=== PATIENT | female | born 1950 | race Caucasian/White ===

== ENCOUNTER 2018-03-22 10:36 | Inpatient (IN) | payer MEDICARE, BC ==
[2018-03-22] MEDS ORDERED: ASPIRIN 81 MG CHEWABLE TABLET PO ONE (10:49)
[2018-03-22] MEDS ORDERED: DILTIAZEM 25MG/5ML VIAL IV ONE ×2 (10:52→12:31)
[2018-03-22 11:03] LABS: BASO % 0.7 % (0-6); EOS % 4.2 % (0-6); GRAN % 59.3 % (47-80); HEMOGLOBIN 14.5 gm/dl (11.6-16.0); LYMPH % 30.4 % (16-45); MEAN CELL VOLUME 90.7 fl (81-97); MEAN CORPUSCULAR HEMOGLOBIN 29.9 pg (27-33); MEAN PLATELET VOLUME 11.5 fl (7.4-10.4); MONO % 5.4 % (0-9); PLATELET COUNT 260 K/uL (130-400); RED BLOOD COUNT 4.85 M/uL (3.80-5.40); RED CELL DISTRIBUTION WIDTH 13.5 % (11.5-14.5); WHITE BLOOD COUNT W/O DIFF 8.7 K/uL (4.2-12.2)
[2018-03-22 11:16] LABS: BLOOD UREA NITROGEN 12 mg/dL (8-23); CREATININE 0.7 mg/dL (0.5-0.9); EST GLOMERULAR FILTRATION RATE > 60 mL/min
--- NOTE | 2018-03-22 11:18 | Emergency Department Record ---
History of Present Illness - General Chief Complaint: Arrythmia/Palpitations Stated Complaint: HEART RACING Time Seen by Provider: 03/22/18 10:41 Source: Patient, Family Mode of Arrival: Ambulatory Limitations: No limitations - History of Present Illness Initial Comments: pt felt like her heart is racing since 0830 this am. she also has a pressure in her jaw. she states she has had a racing heart in the past but it always spontaneously resolves MD Complaint: "Heart racing", Palpitations, Rapid heart beat Onset/Timin -: Hour(s) Arrythmia History: Atrial fibrillation, Other Associated Symptoms: Anxiety, Nausea/vomiting - Related Data Home Medications Medication Instructions Recorded Confirmed Last Taken Cetirizine HCl [Zyrtec] 10 mg PO DAILY 03/22/18 03/22/18 1 Day Ago ~03/21/18 Doxycycline Monohydrate [Oracea] 40 mg PO DAILY 03/22/18 03/22/18 1 Day Ago ~03/21/18 Fluticasone Propionate [Flonase 1 spray NS BID 03/22/18 03/22/18 1 Day Ago Allergy Relief] ~03/21/18 Levothyroxine Sodium [Synthroid] 88 mcg PO DAILY 03/22/18 03/22/18 1 Day Ago ~03/21/18 Lisinopril 10 mg PO DAILY 03/22/18 03/22/18 1 Day Ago ~03/21/18 Omeprazole 20 mg PO DAILY 03/22/18 03/22/18 1 Day Ago ~03/21/18 Pravastatin Sodium [Pravachol] 20 mg PO DAILY 03/22/18 03/22/18 1 Day Ago ~03/21/18 Allergies Allergy/AdvReac Type Severity Reaction Status Date / Time brompheniramine Allergy RASH Verified 03/22/18 11:09 [From Drixoral] dexbrompheniramine Allergy RASH Verified 03/22/18 11:09 [From Drixoral] erythromycin base Allergy DIARRHEA Verified 03/22/18 11:09 [From Erythrocin] Penicillins Allergy RASH Verified 03/22/18 11:09 pseudoephedrine Allergy RASH Verified 03/22/18 11:09 [From Drixoral] Travel Screening - Travel/Exposure Within Last 30 Days Have you traveled within the last 30 days?: No - Travel/Exposure Within Last Year Have you traveled outside the [place] in the last year?: No - Additonal Travel Details Have you been exposed to anyone with a communicable illness?: No - Travel Symptoms Symptom Screening: None Review of Systems Reviewed: No additional complaints except as noted below Constitutional: Reports: As per HPI. Denies: Chills, Fever, Malaise, Night sweats, Weakness, Weight change Eyes: Reports: As per HPI. Denies: Eye discharge, Eye pain, Photophobia, Vision change ENT: Reports: As per HPI. Denies: Congestion, Dental pain, Ear pain, Epistaxis , Hearing loss, Throat pain Respiratory: Reports: As per HPI. Denies: Cough, Dyspnea, Hemoptysis, Stridor, Wheezes Cardiovascular: Reports: As per HPI. Denies: Arrhythmia, Chest pain, Dyspnea on exertion, Edema, Murmurs, Orthopnea, Palpitations, Paroxysmal nocturnal dyspnea, Rheumatic Fever, Syncope Endocrine: Reports: As per HPI. Denies: Fatigue, Heat or cold intolerance, Polydipsia, Polyuria Gastrointestinal: Reports: As per HPI. Denies: Abdominal pain, Constipation, Diarrhea, Hematemesis, Hematochezia, Melena, Nausea, Vomiting Genitourinary: Reports: As per HPI. Denies: Abnormal menses, Discharge, Dyspareunia, Dysuria, Frequency, Hematuria, Incontinence, Retention, Urgency Musculoskeletal: Reports: As per HPI. Denies: Arthralgia, Back pain, Gout, Joint swelling, Myalgia, Neck pain Skin: Reports: As per HPI. Denies: Bruising, Change in color, Change in hair/ nails, Lesions, Pruritus, Rash Neurological: Reports: As per HPI. Denies: Abnormal gait, Confusion, Headache, Numbness, Paresthesias, Seizure, Tingling, Tremors, Vertigo, Weakness Psychiatric: Reports: As per HPI. Denies: Anxiety, Auditory hallucinations, Depression, Homicidal thoughts, Suicidal thoughts, Visual hallucinations Hematological/Lymphatic: Reports: As per HPI. 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 - NEURO Hx Neuro Disorders: No - GI Hx Diverticulitis: Yes Hx Reflux: Yes - Hx Genitourinary Disorders: Yes Hx Kidney Stones: Yes Comment:: abnormal kidney - ENDOCRINE Hx Endocrine Disorders: Yes Hx Diabetes: No Hx Thyroid Disease: Yes (thyroidectomy) - MUSCULOSKELETAL Hx Arthritis: Yes Comment:: leg cramps - PSYCH Hx Anxiety: Yes (self coping) Hx Depression: Yes - HEMATOLOGY/ONCOLOGY Hx Anemia: No Hx Blood Disorders: No Hx Bruising: Yes Hx Cancer: Yes Hx Chemotherapy: No Hx Radiation Therapy: No (radio iodine) Family Medical History Any Significant Family History?: No Family Hx Comment (NOT TO BE USED IN PLACE OF ITEMS BELOW): Father diverticulis with bowel resection Hx Cancer: Father Hx Heart Disease: Mother, Grandparents *Heart Comment: past away at 49 Physical Exam - General General Appearance: Alert, Oriented x3, Cooperative, Mild distress - Head Head exam: Normal inspection - Eye Eye exam: Normal appearance, PERRL, EOMI Pupils: Normal accommodation - ENT ENT exam: Normal exam, Mucous membranes moist, Normal external ear exam, Normal orophraynx, TM's normal bilaterally Ear exam: Normal external inspection. negative: External canal tenderness Nasal Exam: Normal inspection. negative: Discharge, Sinus tenderness Mouth exam: Normal external inspection, Tongue normal Teeth exam: Normal inspection. negative: Dental caries Throat exam: Normal inspection. negative: Tonsillar erythema, Tonsillar exudate - Neck Neck exam: Normal inspection, Full ROM. negative: Tenderness - Respiratory Respiratory exam: Normal lung sounds bilaterally. negative: Respiratory distress - Cardiovascular Cardiovascular Exam: Normal heart sounds, Irregular rhythm, Tachycardia - GI/Abdominal GI/Abdominal exam: Soft, Normal bowel sounds. negative: Tenderness - Rectal Rectal exam: Deferred - exam: Deferred - Extremities Extremities exam: Normal inspection, Full ROM, Normal capillary refill. negative: Tenderness - Back Back exam: Reports: Normal inspection, Full ROM. Denies: Muscle spasm, Rash noted, Tenderness - Neurological Neurological exam: Alert, CN II-XII intact, Normal gait, Oriented X3 - Psychiatric Psychiatric exam: Normal affect, Normal mood - Skin Skin exam: Dry, Intact, Normal color, Warm Course Vital Signs 03/22/18 03/22/18 10:39 11:04 Pulse Rate 185 H Pulse Rate [ 128 H Pulse Ox Probe] Respiratory 20 20 Rate Blood Pressure 112/95 Blood Pressure 99/79 [Left Arm] Pulse Ox 97 2 L Medical Decision Making - Lab Data Result diagrams: 03/22/18 10:47 03/22/18 10:47 Lab Results 03/22/18 Range/Units 10:47 WBC 8.7 (4.2-12.2) K/uL RBC 4.85 (3.80-5.40) M/uL Hgb 14.5 (11.6-16.0) gm/dl Hct 44.0 (35.0-47.0) % MCV 90.7 (81-97) fl MCH 29.9 (27-33) pg MCHC 33.0 (32-36) g/dl RDW 13.5 (11.5-14.5) % Plt Count 260 (130-400) K/uL MPV 11.5 H (7.4-10.4) fl Gran % 59.3 (47-80) % Lymphocytes % 30.4 (16-45) % Monocytes % 5.4 (0-9) % Eosinophils % 4.2 (0-6) % Basophils % 0.7 (0-6) % Disposition Disposition: Admit Clinical Impression: Atrial fibrillation with RVR Disposition: Still a Patient at [facility] Decision to Admit: Admit from ER Decision to Admit Date: 03/22/18 Decision to Admit Time: 14:47 Quality - Quality Measures Quality Measures: N/A - Blood Pressure Screening Does Patient Have Any of the Following: No Blood Pressure Classification: Hypertensive Reading Systolic Measurement: 112 Diastolic Measurement: 95 Screening for High Blood Pressure: < Pre-Hypertensive BP, F/U Documented > [ [id number]] Pre-Hypertensive Follow-up Interventions: Follow-up with rescreen every year.
[2018-03-22 11:19] LABS: GLUCOSE,RANDOM 146 mg/dL (74-109)
[2018-03-22 11:22] LABS: CREATINE PHOSPHOKINASE 64 U/L (26-192)
[2018-03-22 11:24] LABS: CKMB 1.5 ng/mL (<3.77)
[2018-03-22 11:32] LABS: THYROID STIMULATING HORMONE 1.37 uIU/mL (0.270-4.20)
[2018-03-22] MEDS ORDERED: DILTIAZEM HCL 125 MG in 0.9 % SODIUM CHLORIDE 100ML 100 ML IV SCH (11:45)
[2018-03-22] MEDS ORDERED: RIVAROXABAN 20 MG TABLET PO ONE (15:00)
[2018-03-22] MEDS ORDERED: NITROGLYCERIN 0.4MG SL TABLET #25 BTL SL PRN (16:25)
[2018-03-22] MEDS ORDERED: TEMAZEPAM 15 MG CAPSULE PO PRN (16:25)
[2018-03-22] MEDS ORDERED: ACETAMINOPHEN 325 MG TAB PO PRN (16:25)
[2018-03-22] MEDS ORDERED: ACETAMINOPHEN 500 MG TABLET PO PRN (16:25)
[2018-03-22 20:27] LABS: CKMB 2.7 ng/mL (<3.77)
--- NOTE | 2018-03-22 21:00 | Medical Records Consult ---
DATE: 03/22/2018 CONSULTING: CASE ROLLINS PA-C REASON FOR CONSULTATION: ATRIAL FIBRILLATION WITH RAPID VENTRICULAR RESPONSE. HISTORY OF PRESENT ILLNESS: Ms. Brown is a very pleasant 67-year-old female with a history of hypertension, hyperlipidemia, hypothyroidism , allergic rhinitis, and gastroesophageal reflux disease, who presented to [facility] this morning with symptoms of palpitations and associated shortness of breath and dizziness. She has had intermittent palpitations lately, typically in the morning but this episode lasted longer than usual and did not spontaneously resolve as it had been in the past and therefore, she presented to the Emergency Department. She has had no symptoms of chest pain this morning but lately has noticed increased symptoms of reflux. She does note mild peripheral edema lately as well. She has no known history of coronary artery disease. She does also have a history of mitral valve regurgitation, which was diagnosed in 1983, when she was . She has also been told she has an irregular heart beat in the past but never diagnosed with A -fib. She has no prior history of CVA, TIA, DVT, PE, CAD, or CHF. She has a family history of cardiovascular disease with her father having a history of myocardial infarction and her mother dying at a young age at 49 years old of unknown cause, possible CVA vs. OK. She denies a history of tobacco or alcohol use. Initial EKG showed atrial fibrillation with rapid ventricular response with rates around 140 beats per minute. She was given two Cardizem boluses and subsequently placed on a drip and spontaneously converted to normal sinus rhythm with occasional PACs. Her blood pressure has been stable and, since conversion to sinus rhythm, she has been asymptomatic. PAST MEDICAL HISTORY: 1. Hypertension. 2. Hyperlipidemia. 3. Hypothyroidism. 4. Allergic rhinitis. 5. Gastroesophageal reflux disease. ALLERGIES: 1. PENICILLIN. 2. ERYTHROMYCIN. 3. MAGNESIUM. 4. DRIXORAL. FAMILY HISTORY: 1. Mother at 49 years old of unknown cause, possible CVA vs. [place]. 2. Father has a history of hypertension as well as myocardial infarction. SOCIAL HISTORY: Denies a previous history of tobacco, alcohol, or illicit drug use. HOME MEDICATIONS: She takes: Lisinopril Pravastatin Zyrtec Flonase Synthroid Omeprazole Oracea OBJECTIVE: VITAL SIGNS: Blood pressure approximately 147/63. Heart rate 73. LABS: WBC 8.7. Hemoglobin 14.5. Hematocrit 44.0. Platelets 260. D-dimer 0.43. Sodium 144. Potassium 3.5. Chloride 105. CO2 24. BUN 12 Creatinine 0.7. Glucose 146. CPK 64. CK-MB 1.5. Troponin less than 0.01. TSH 1.37. CHEST X-RAY: Negative for acute intrathoracic pathology. PHYSICAL EXAM: GENERAL: Alert and oriented x3, in no acute distress. On supplemental oxygen with IV Cardizem drip currently running. HEENT: Normocephalic, atraumatic. Pupils equal, round, and reactive to light. CARDIAC: Regular rate and rhythm with occasional premature beats, 3 out of 6 systolic murmur best auscultated at the apex, trace bilateral peripheral edema. LUNGS: Clear to auscultation bilaterally. ABDOMEN: Soft, nontender. Positive bowel sounds x4. Neurocranial nerves II through XII grossly intact. ASSESSMENT AND PLAN: NEWLY DIAGNOSED ATRIAL FIBRILLATION WITH RAPID VENTRICULAR RESPONSE: Ms. Brown is a pleasant 67-year-old female with a history of hypertension, hyperlipidemia, hypothyroidism, and GERD, who presented to [facility] today complaints of palpitations. Initial EKG showed atrial fibrillation with rapid ventricular response. She received two boluses of IV Cardizem as well as was started on a drip and has since converted to sinus rhythm. Since she has been in sinus rhythm, she has been asymptomatic. On telemetry, she does have occasional PACs. Her blood pressure has been stable. At this time, she will be admitted to Internal Medicine Service and observed overnight and continued on IV Cardizem drip. She will be started on oral anticoagulation for a CHADS2-VASc score of 3 (age, female, hypertension). This will be with Eliquis 5 mg b.i.d. or Xarelto 20 mg daily, depending on her insurance. Recent thyroid function and electrolytes were satisfactory on labs performed in the E.D. today. Echocardiogram has been completed today and awaiting results. She will likely need an outpatient stress test in the near future as well. Will follow-up with her tomorrow. cc: Dr. Matthew Snell JOB NUMBER: [id number] [facility]
[2018-03-23 04:15] LABS: CKMB 2.9 ng/mL (<3.77)
[2018-03-23] MEDS ORDERED: OMEPRAZOLE 20 MG PO SCH (07:00)
[2018-03-23] MEDS ORDERED: LEVOTHYROXINE SODIUM 88 MCG TABLET PO SCH (07:00)
--- NOTE | 2018-03-23 07:11 | History and Physical Report ---
DATE: 03/22/2018 CHIEF COMPLAINT: Palpitations, tachycardia, short of breath. HISTORY OF PRESENT ILLNESS: This 67-year-old female presented to the emergency department with rapid heart rate, irregular, rate of 185. Some chest discomfort, jaw hurts, short of breath. She has had this happen 2-3 times before but it went away by itself. First time she came to the hospital for medical care. PAST MEDICAL HISTORY: Hypercholesterolemia, hypothyroidism, GERD, hypertension, diverticulitis, abnormal kidney with kidney stones, thyroidectomy, arthritis, leg cramps, anxiety, depression. PAST SURGICAL HISTORY: Tonsils and adenoids, appendectomy, thyroidectomy, colonoscopy. She had had radiation for her thyroid, radioactive iodine. MEDICATIONS: 1. Pravachol 20 mg at h.s. 2. levothyroxine 88 mcg daily. 3. Doxycycline 40 mg daily. 4. Flonase nasal spray 1 spray each nostril b.i.d. 5. Zyrtec 10 mg daily. 6. Omeprazole 20 mg daily. 7. Lisinopril 10 mg daily. ALLERGIES: PSEUDOEPHEDRINE, PENICILLIN, ERYTHROMYCIN, DRIXORAL. FAMILY/PSYCHOSOCIAL HISTORY: Father had cancer, mother had heart disease, grandparents had heart disease. Never smoked cigarettes. No alcohol or drug use. REVIEW OF SYSTEMS: HEENT: No upper respiratory infection symptoms, cough, cold, or congestion. Cardiovascular: See Chief Complaint. She has palpitations, arrhythmia, and tachycardia. Respiratory: No cough, cold, or congestion. Gastrointestinal: No nausea, vomiting, diarrhea, black stools, or bloody stools. Genitourinary: No dysuria, hematuria, frequency, or burning on urination. Musculoskeletal: She has arthritis. Neurological: No CVA, paralysis, or paresthesias. Endocrine: She has hypothyroidism. She has had her thyroid irradiated with radioactive iodine probably for Graves disease or cancer. Integument: No rash, ulcers, change in moles, or yellow skin. PHYSICAL EXAMINATION: VITALS: Height 5 feet 7 inches, weight 180 pounds. Temperature 98.4, pulse 65, blood pressure 136/62, respiratory rate 18, pulse ox 100% on 2L nasal cannula. She was when she came in 185 was her pulse rate, now it is 86 and regular. Normal sinus rhythm. EKG is reviewed. HEENT: Pupils are equal, round, and reactive to light and accommodation. Extraocular muscles are intact. Throat is clear. Nose is clear. Tympanic membranes are mcnamara. NECK: Supple. No jugular venous distention. No hepatojugular reflux. No carotid bruits. Thyroid is smooth. CARDIOVASCULAR: Currently regular rate and rhythm. Was in Atrial fibrillation with a rate of 185, irregular. RESPIRATORY: Clear to auscultation. Breath sounds equal bilaterally. ABDOMEN: Soft, nontender. No hepatosplenomegaly, no masses, no tenderness. Bowel sounds are active. No bruits. EXTREMITIES: No pitting edema. No cyanosis, no clubbing. Full range of motion. Peripheral pulses are good. BREASTS: Exam deferred. GYNECOLOGICAL: Exam deferred. RECTAL: Exam deferred. NEUROLOGIC: Cranial nerves II-XII intact. No gross defects. Sensation normal, strength normal. Deep tendon reflexes equal bilaterally with Babinski negative. MENTAL STATUS: Alert and oriented x3. IMPRESSION: 1. Atrial fibrillation with rapid ventricular response. 2. Hypercholesterolemia. 3. Hypothyroidism secondary to radioactive iodine and treatment of her thyroid. 4. Allergies. 5. Gastroesophageal reflux disease. 6. Hypertension. PLAN: She has a Cardizem drip going. Cardiology has already seen her through the physician clinical research assistant and Dr. Pleitez is planning to see her tomorrow. [facility]
--- NOTE | 2018-03-23 09:21 | RADIOLOGY REPORT ---
EXAM: PORTABLE CHEST HISTORY: CHEST PAIN. TECHNIQUE: AP upright portable view of the chest was obtained. Comparison: None. FINDINGS: The heart size is normal. Calcification of the aorta. No definite acute infiltrate seen. No pleural effusion or pneumothorax evident. Fracture deformity of the right seventh rib posteriorly is presumably chronic and correlation with any such history of prior rib fracture suggested. The bones do appear somewhat osteopenic suggesting osteoporosis. IMPRESSION: 1. CALCIFICATION OF THE AORTA. 2. NO ACUTE INFILTRATE EVIDENT. 3. FRACTURE DEFORMITY POSTERIORLY IN THE RIGHT SEVENTH RIB, PRESUMABLY CHRONIC. OSTEOPOROSIS. JOB NUMBER: [id number] [facility]
[2018-03-23] MEDS ORDERED: Non-Formulary MISC (Omeprazole [Omeprazole] 20 MG) PO SCH (10:00)
[2018-03-23] MEDS ORDERED: DOXYCYCLINE MONOHYDRATE 40 MG PO SCH (10:00)
[2018-03-23] MEDS ORDERED: FLUTICASONE PROPIONATE INH SCH (10:00)
[2018-03-23] MEDS ORDERED: PATIENT OWN MED: LISINOPRIL 10 MG PO SCH (10:00)
[2018-03-23] MEDS ORDERED: PRAVASTATIN SODIUM 20 MG PO SCH (10:00)
[2018-03-23] MEDS ORDERED: CETIRIZINE 10 MG PO SCH (10:00)
[2018-03-23] MEDS ORDERED: Non-Formulary MISC (Cetirizine Hcl [Zyrtec] 10 MG) PO SCH (10:00)
[2018-03-23] MEDS ORDERED: DOXYCYCLINE 40 MG PO SCH (10:00)
[2018-03-23] MEDS ORDERED: DILTIAZEM HCL 120 MG ER CAPSULE PO SCH (11:45)
[2018-03-23] MEDS ORDERED: SUCRALFATE 1 G/10 ML UD PO ONE (13:11)
--- NOTE | 2018-03-23 17:58 | Discharge Note ---
VTE H&P Assessment - Risk for VTE Risk for VTE: Yes Risk Level: Moderate Risk Assessment Date: 03/22/18 Risk Assessment Time: 17:00 VTE Orders Placed or Will Be Placed: Yes Discharge Medications - Discharge Medications Prescriptions: Diltiazem HCl [Cardizem Cd] 120 mg PO DAILY #30 cap.er.24h Rivaroxaban [Xarelto] 20 mg PO DAILY #30 tab Home Medications: Ambulatory Orders Cetirizine HCl [Zyrtec] 10 mg PO DAILY 03/22/18 [Last Taken 1 Day Ago ~03/21/18] Doxycycline Monohydrate [Oracea] 40 mg PO DAILY 03/22/18 [Last Taken 1 Day Ago ~ 03/21/18] Fluticasone Propionate [Flonase Allergy Relief] 1 spray NS BID 03/22/18 [Last Taken 1 Day Ago ~03/21/18] Levothyroxine Sodium [Synthroid] 88 mcg PO DAILYTHY 03/22/18 [Last Taken 1 Day Ago ~03/21/18] Lisinopril 10 mg PO DAILY 03/22/18 [Last Taken 1 Day Ago ~03/21/18] Omeprazole 20 mg PO DAILY 03/22/18 [Last Taken 1 Day Ago ~03/21/18] Pravastatin Sodium [Pravachol] 20 mg PO QHS 03/22/18 [Last Taken 1 Day Ago ~] Diltiazem HCl [Cardizem Cd] 120 mg PO DAILY #30 cap.er.24h 03/23/18 [Last Taken Unknown] Rivaroxaban [Xarelto] 20 mg PO DAILY #30 tab 03/23/18 [Last Taken Unknown] Discharge Note - Date Date of Discharge Note: 03/23/18 Disposition: Home, Self-Care Condition: (1) Good Additional Instructions: follow up with family tomorrсветлана as scheduled and she is having some dysphagia problems and will need a GI consult for possible EGD. follow up clinical radiologist Dr. Candy Pleitez from [facility] in 4-6 weeks at [facility] specialty clinic schedule outpatient stress test patient needs nursing home anticoag and starting xarelto 20 mg once a day for her episode of atrial fib and she has an abnormality on her echo which needs anticoagulation too. continuing cardizemCD 120 mg to keep her rate down and hopefully she will stay in NSR. continue her home meds Referrals: JELENA MORALES [Primary Care Provider] - Forms: Patient Portal Access
[2018-03-23] MEDS ORDERED: SUCRALFATE 1 G/10 ML UD PO SCH (18:00)
[2018-03-23] MEDS ORDERED: RIVAROXABAN 20 MG TABLET PO SCH (18:00)
[2018-03-23] MEDS ORDERED: PRAVASTATIN 20 MG PO SCH (22:00)
[2018-03-24] MEDS ORDERED: PATIENT OWN MED: LEVOTHYROXINE 88 MCG PO SCH (07:00)
[2018-03-24] MEDS ORDERED: DOXYCYCLINE 40 MG PO SCH (07:00)
--- NOTE | 2018-03-24 12:40 | Discharge Summary ---
DATE: 03/23/2018 DISCHARGE DIAGNOSES: 1. An episode of atrial fibrillation with a fast rate of 185. Rate was slowed down with IV Cardizem and then she converted to normal sinus rhythm. 2. Nausea and dysphagia. 3. Gastroesophageal reflux disease. 4. Cardiac enzymes were negative. 5. 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 Started on Xarelto 20 mg once a day. 6. She also has a history of hypercholesterolemia, hypothyroidism, GERD, hypertension. ATTENDING PHYSICIAN: Jules Ravi DO REASON FOR HOSPITALIZATION: Tachycardia, palpitations, short of breath. This 67-year-old female presented to the emergency department with rapid heart rate, irregular rate of 185, some chest discomfort, jaw hurt, shortness of breath. She has had this happen 2 or 3 times before but it went away by itself. First time she sought medical care for this problem. SIGNIFICANT FINDINGS: Cardiac enzymes were negative. EKG, you can see the initial EKG showing rapid ventricular response with about 185 in atrial fibrillation. After she converted, she was showing normal sinus rhythm with no acute ST-T-wave changes. Cardiac enzymes were normal. WBC 8700, hemoglobin 14.5, potassium 3.5, BUN 12, creatinine 0.7, CK-MB negative 2.9, TSH 1.37. Consultation with Dr. Cammie Pleitez, the gandy dancer from [facility], who agreed with rate control and she is in normal sinus rhythm. He also agreed with long-term anticoagulation and wants to do an exercise stress test outpatient, and he wants to have the patient follow up with him in 4-6 weeks for further evaluation. HOSPITAL COURSE: Unremarkable. She has been asymptomatic since converting to normal sinus rhythm in the emergency department. CONDITION ON DISCHARGE: Much improved. DISCHARGE INSTRUCTIONS: Follow up with her primary, Dr. Beckett, tomorrow as scheduled. Will need a GI consult for her dysphagia. Possible EGD. Will continue her Prilosec once a day and Maalox or Mylanta as needed after meals and at bedtime. She is to follow up with Dr. Cammie Pleitez in 4-6 weeks at the specialty clinic at [facility] for further treatment of her episode of AFib and an abnormal echocardiogram. Start Xarelto 20 mg a day for long-term. Using Xarelto because the pharmacy said this is the least expensive one with her insurance. Also started Cardizem CD 120 once a day to keep her rate down and to keep her hopefully in normal sinus rhythm. Continue home medications. Levothyroxine 88 mcg daily, lisinopril 10 mg daily, omeprazole 20 mg daily, pravastatin 20 mg at h.s., and I believe doxycycline 40 mg daily and Zyrtec 10 mg daily p.r.n. allergies. MTDD
== END 2018-03-23 18:50 | disposition home or self-care (01) | DRG 310 ==
LOC: ER 10:36 → MEDSURG 16:19
PROVIDERS: ADMIT Emergency Medicine; ATTEND Emergency Medicine
DX: I48.91 Unspecified atrial fibrillation (principal); I10 Essential (primary) hypertension; E78.00 Pure hypercholesterolemia, unspecified; E03.9 Hypothyroidism, unspecified; M19.90 Unspecified osteoarthritis, unspecified site; K21.9 Gastro-esophageal reflux disease without esophagitis; Z85.850 Personal history of malignant neoplasm of thyroid; Z87.19 Personal history of other diseases of the digestive system
CPT/HCPCS: 71045; 80048; 80061; 82550; 82553; 83735; 84443; 84484; 85025; 85379; 93005; 93010; 93306; 96365; 96366; 99223; 99285